=== PATIENT | female | born 1955 | race Caucasian/White ===

== ENCOUNTER 2017-07-02 20:10 | Inpatient (IN) | payer MEDICAID ==
--- NOTE | 2017-07-02 21:06 | ED Physician Chart ---
ED Chief Complaint/HPI - Patient Information Date Seen:: 07/02/17 Time Seen:: 20:30 Chief Complaint:: Dizziness History of Present Illness:: onset x one day of weakness and dizziness; no report of H/As, LOC, S/T, E/As, neck pain, C/P, SOB, Abd. Pain, A/N/V/D/XC, fever, chills, or urinary s/s Allergies:: Allergies Allergy/AdvReac Type Severity Reaction Status Date / Time No Known Allergies Allergy Verified 07/02/17 20:51 Vitals:: Vital Signs - 8 hr 07/02/17 20:30 Temp 97.8 F HR 90 RR 18 BP 153/83 O2 Sat % 97 Historian:: Patient, Family Member Review:: Nurse's Note Reviewed ED Review of Systems - Review of Systems General/Constitutional: No fever, No chills, No weight loss, No weakness, No diaphoresis, No edema, No loss of appetite Skin: No skin lesions, No rash, No bruising Head: No headache, No light-headedness Eyes: No loss of vision, No pain, No diplopia ENT: No earache, No nasal drainage, No sore throat, No tinnitus Neck: No neck pain, No swelling, No thyromegaly, No stiffness, No mass noted Cardio Vascular: No chest pain, No palpitations, No PND, No orthopnea, No edema Pulmonary: No SOB, No cough, No sputum, No wheezing GI: No nausea, No vomiting, No diarrhea, No pain, No melena, No hematochezia, No constipation, No hematemesis G/U: No dysuria, No frequency, No hematuria, No nacturia Charge Weigher: No vaginal discharge, No abnormal vaginal bleed, No contraction Musculoskeletal: No bone or joint pain, No back pain, No muscle pain Endocrine: No polyuria, No polydipsia Psychiatric: No prior psych history, No depression, No anxiety, No suicidal ideation, No homicidal ideation, No auditory hallucination, No visual hallucination Hematopoietic: No bruising, No lymphadenopathy Allergic/Immuno: No urticaria, No angioedema Neurological: No syncope, No focal symptoms, No weakness, No paresthesia, No headache, No seizure, No dizziness, No confusion, No vertigo ED Past Medical History - Past Medical History Obtainable: Yes Past Medical History: HTN, Dyslipidemia, Arthritis Family History: HTN Social History: Non Smoker, No Alcohol, No Drug Use, Surgical History: None Psychiatricy History: None Medication: Reviewed Family Medical History - Family Member Mother History Unknown: Yes ED Physical Exam - Physical Examination General/Constitutional: Awake, Well-developed, well-nourished, Alert, No distress, GCS 15, Non-toxic appearing, Ambulatory Head: Atraumatic Eyes: Lids, conjuctiva normal, PERRL, EOMI Skin: Nl inspection, No rash, No skin lesions, No ecchymosis, Well hydrated, No lymphadenopathy ENMT: External ears, nose nl, TM canals nl, Nasal exam nl, Lips, teeth, gums nl , Oropharynx nl, Tonsils nl Neck: Nontender, Full ROM w/o pain, No JVD, No nuchal rigidity, No bruit, No mass, No stridor Respiratory: Nl effort/Exclusion, Clear to Auscultation, No Wheeze/Rhonchi/Rales Cardio Vascular: RRR, No murmur, gallop, rubs, NL S1 S2, Carotid/Femoral/Distal pulses equal bilaterally GI: No tenderness/rebounding/guarding, No organomegaly, No hernia, Normal BS's, Nondistended, No mass/bruits, No McBurney tenderness : No CVA tenderness Extremities: No tenderness or effusion, Full ROM, normal strength in all extremities, No edema, Normal digits & nails Neuro/Psych: Alert/oriented, DTR's symmetric, Normal sensory exam, Normal motor strength, Judgement/insight normal, Mood normal, Normal gait, No focal deficits Misc: Normal back, No paraspinal tenderness ED Labs/Radiology/EKG Results - Lab Results Comments:: WBC: 12.2; K+: 3.4; U/A: + Pyuria - Radiology Results Comments:: NAD - EKG Interpretations EKG Time:: 21:18 Rate & Rhythm: 82; NSR Comments:: non-specific st-t changes ED Septic Shock - . Is Septic Shock (SBP<90, OR Lactate>4 mmol\L) present?: No - <6hrs of presentation: Vital Signs: Vital Signs - 8 hr 07/02/17 20:30 Temp 97.8 F HR 90 RR 18 BP 153/83 O2 Sat % 97 ED Reassessment (Disposition) - Reassessment Reassessment Condition:: Improved - Diagnosis Diagnosis:: Dx: Hypokalemia; Leukocytosis; UTI Urosepsis; Sepsis; - Aftercare/Follow up Instructions Aftercare/Follow-Up Instructions:: Counseled pt regarding lab results/diagnosis & need follow up, Counseled pt & family regarding lab results/diagnosis & need follow up - Patient Disposition Discharge/Transfer:: Acute Care w/in this hosp Accepting Physician:: Dr. Casarez Time Called:: 2224 Time Responded:: 22:25 Admitted to:: Telemetry Spoke to:: Dr. Casarez Admitting Medical Physician:: Dr. Casarez Condition at Disposition:: Stable, Improved
[2017-07-02] MEDS ORDERED: Sodium Chloride 0.9% 1,000 ML IV ONE (21:07)
[2017-07-02 21:24] LABS: % BASOPHILS 0.2 % (0.0-2.0); % EOSINOPHILS 0.4 % (0.0-5.0); % LYMPHOCYTES 12.9 % (20.0-50.0); % MONOCYTES 5.3 % (2.0-10.0); % NEUTROPHILS 81.2 % (40.0-80.0); HEMATOCRIT 36.8 % (41.0-60); HEMOGLOBIN 12.4 gm/dL (12-16); LYMPHOCYTE ABSOLUTE 1.6 Th/cmm (1.5-3.0); MEAN CELL VOLUME 86.3 fl (81-100); MEAN CORPUSCULAR HEMOGLOBIN 29.2 pg (27.0-31.0); MEAN CORPUSCULAR HGB CONC 33.8 pg (28.0-36.0); MEAN PLATELET VOLUME 7.9 fl; MONOCYTE ABSOLUTE 0.6 Th/cmm (0.3-1.0); PLATELET COUNT 288 Th/cmm (150-400); RED BLOOD COUNT 4.26 Mil/cmm (3.80-5.10); RED CELL DISTRIBUTION WIDTH 12.7 % (11.5-20.0)
[2017-07-02 21:35] LABS: WHITE BLOOD COUNT 12.2 Th/cmm (4.8-10.8)
[2017-07-02 21:37] LABS: INR 1.01 (0.5-1.4); PROTHROMBIN TIME (TEST) 10.5 SECONDS (9.5-11.5)
[2017-07-02 21:44] LABS: ALB/GLOB RATIO 1.7 (1.0-1.8); ALBUMIN 4.4 gm/dL (3.7-5.3); ALKALINE PHOSPHATASE 60 U/L (34-104); AMYLASE SERUM 77 U/L (29-103); ANION GAP 11.3 (7.0-16.0); BILIRUBIN,TOTAL 0.2 mg/dL (0.3-1.0); BUN - UREA NITROGEN 22 mg/dL (7-25); CALCIUM SERUM 9.5 mg/dL (8.6-10.3); CARBON DIOXIDE 22.1 mEq/L (21.0-31.0); CHLORIDE 109 mEq/L (98-107); CHOLESTEROL 218 mg/dL (<200); CREATININE - SERUM 0.7 mg/dL (0.6-1.2); CREATININE KINASE 48 U/L (30-223); GFR AFRICAN-AMERICAN > 60.0 ml/min (>90); GFR NON AFRICAN-AMERICAN > 60.0 ml/min; GLUCOSE 138 mg/dL (70-105); HDL -HIGH DENSITY LIPOPROTEIN 48 mg/dL (23-92); LIPASE 33 U/L (11-82); POTASSIUM SERUM 3.4 mEq/L (3.5-5.1); SGOT 12 U/L (13-39); SGPT/ALT 9 U/L (7-52); SODIUM SERUM 139 mEq/L (136-145); TRIGLYCERIDES 98 mg/dL (<150)
[2017-07-02] MEDS ORDERED: Potassium Chloride 20 mEq ER Tab PO ONE ×2 (22:46→23:05)
[2017-07-02] MEDS ORDERED: cefTRIAXone 1 GM in Sodium Chloride 0.9% 50 ML IV ONE (22:51)
[2017-07-02 23:52] LABS: URINE MICROSCOPIC INDICATED? YES; URINE SOURCE MIDSTREAM
[2017-07-03 00:03] LABS: URINE BILIRUBIN NEGATIVE (NEGATIVE); URINE BLOOD TRACE (NEGATIVE); URINE GLUCOSE (UA) NEGATIVE (NEGATIVE); URINE KETONE NEGATIVE (NEGATIVE); URINE LEUKOCYTE ESTERASE TRACE (NEGATIVE); URINE NITRATE POSITIVE (NEGATIVE); URINE PROTEIN NEGATIVE (NEGATIVE); URINE UROBILINOGEN 0.2 E.U./dL (0.2 - 1.0)
[2017-07-03 00:10] LABS: URINE CLARITY HAZY (CLEAR); URINE COLOR YELLOW
[2017-07-03 00:15] LABS: URINE BACTERIA MANY /hpf (NONE SEEN); URINE EPITHELIAL CELLS FEW /lpf (FEW); URINE RBC 0-2 /hpf (0-5)
[2017-07-03 02:44] LABS: INF A SCREEN NEG FOR INF A; INF B SCREEN NEG FOR INF B
--- NOTE | 2017-07-03 07:51 | Diagnostic Imaging Report ---
Portable chest x-ray History: Pain Allowing for portable technique the heart size is normal. No focal pulmonary parenchymal processes. No hilar or mediastinal abnormalities. Impression: No acute abnormalities.
[2017-07-03] MEDS ORDERED: D5-0.45NS 1,000 ML IV SCH (08:45)
[2017-07-03] MEDS ORDERED: Albuterol Nebulizer 2.5mg/3mL HHN PRN (16:45)
[2017-07-03 17:43] VITALS: BP 134/61
[2017-07-03] MEDS: Budesonide 0.5 Mg/2 mL Ud HHN SCH (19:00)
[2017-07-03] MEDS ORDERED: cefTRIAXone 1 GM in Sodium Chloride 0.9% 50 ML IV SCH (21:00)
--- NOTE | 2017-07-04 01:16 | History & Physical ---
ADMIT DATE: 07/03/2017 HISTORY OF PRESENT ILLNESS: The patient admitted through the Emergency Room to the [facility] with the chief complaints of weakness and dizziness onset for 1-day and then patient reported dizziness for more than 2 hours and she felt nauseated and the patient showed up at the Emergency Room, but there is no report of the headaches or LOC or neck pain or shortness of breath or abdominal pain or any other symptoms of the chest pain or urinary tract infections. ALLERGIES: There are no known allergies. PAST MEDICAL HISTORY: Significant for hyperlipidemia, hypertension, arthritis, chronic pain syndrome, and diabetes without any complication, and also she is a nonsmoker SOCIAL HISTORY: Nonsmoker. REVIEW OF SYSTEMS: GENERAL AND CONSTITUTIONAL: The patient denies any fevers, chills, or change in appetite. No headache. NECK: Complaining of neck pain secondary to her arthritis. Otherwise, no major pain while movements of the neck. EYES: No eye pain, no eye discomfort. ENT: No discharge in the ear, no trouble in hearing. No earache and no nosebleeds. No nasal discharge, no mouth pain. No sore throat. No dysphagia. CARDIOVASCULAR: No chest pain, no palpitations. PULMONARY: No shortness of breath, no cough, no phlegm. GASTROINTESTINAL: No abdominal pain, no bloody stool, but there is a history of nausea. She felt nauseated for about an hour prior to the admission. No dysuria, no polyuria, no incontinence. MUSCULOSKELETAL: She has arthritis and chronic pain syndrome which she experiences and takes ibuprofen and also gets the shots, other than that there is no other neck pain or back pain. INTEGUMENTARY: No itching, no rash, no abnormal skin lesions. NEUROLOGIC: The patient feels dizzy when admitted, but now she is awake and alert. No confusion, no tingling, no numbness, and no dizziness at present. PSYCHIATRIC: No history. GENITOURINARY: Recently in April, she had a history of urinary tract infection for which she was treated and also referred to a urologist, but she did not see the specialist because of the distance and having no ride to go see him. PHYSICAL EXAMINATION: GENERAL: On examination today, the patient is awake and alert, not in any distress. VITAL SIGNS: Temperature 97.8, heart rate 90, respirations 18, blood pressure 153/83, saturating 97% on room air. HEENT: Head is atraumatic and normocephalic. Eyes normal for inspection. Conjunctivae is normal. PERRLA. EOMI. SKIN: Warm and normal for inspection and touch. EAR, NOSE, MOUTH, AND THROAT: No lesions. No abnormalities noted. NECK: Nontender. Full range of motion without pain noted. No JVD. No nuchal rigidity. RESPIRATORY: Normal effort and clear to auscultate. No wheezing, no rhonchi. CARDIOVASCULAR: No murmurs. Normal S1, S2 heard. GASTROINTESTINAL: Nontender and bowel sounds are present, soft. GENITOURINARY: No CVA tenderness and no dysuria. EXTREMITIES: No clubbing, no cyanosis, and no edema. NEUROLOGIC AND PSYCHIATRIC: The patient is alert and oriented. DTRs are symmetric and normal sensory exam. Normal motor strength. Judgment and insight is normal. Mood is normal. Normal gait. No focal deficits noted. MISCELLANEOUS: Complaining of neck pain on and off, which is relieved with ibuprofen secondary to her arthritis. LABORATORY DATA: The labs in the Emergency Room shows WBC slightly elevated at 12.2 and potassium 3.4. UA shows positive for pyuria. Radiology results, no active disease noted. EKG interpretation was nonspecific ST-T changes and normal sinus rhythm. DIAGNOSES: At the time of admission is leukocytosis, urinary tract infection, and questionable urosepsis. other diadnoses HTN, Hyperlipidemia, DM2-without complication, stable,Arthritis , Chronic pain syndrome, Smoker PLAN: To continue the IV fluids at 60 mL per an hour and will continue the home medications of the Actos met 15/500 mg and her simvastatin 40 mg and we will start her on the breathing treatments and continue the Rocephin q. 24 hours 1 gram. I will also start Levaquin for the UTI and wait for the cultures to come back. The patient is feeling pretty good now, so if she continues to be stable and no dizziness noted or the patient's condition does not deteriorate, we will plan on discharging tomorrow afternoon. JOB# [id number] [facility]ITALMessi
[2017-07-04] MEDS: Budesonide 0.5 Mg/2 mL Ud HHN SCH (08:26)
[2017-07-04 14:57] LABS: A1C % 6.8 % (4.0-6.0)
--- NOTE | 2017-07-04 15:10 | Discharge Summary ---
General Discharge Summary - Discharge Summary Date of Admission: 07/03/17 Admitting Diagnosis: Possible sepsis, dizziness and weakness, Discharge Date: 07/04/17 Discharge Diagnosis: Sepsis ruled out. UTI Laboratory Findings: Laboratory Tests 07/04/17 04:26 Hemoglobin A1c % 6.8 H Hospital Course: Patient received IV antibiotics and IV fluids. Did well. Pain was controlled with oral pain medications. Today stable to be discharged Condition at Discharge: Stable Disposition: PT DISCHARGED HOME Home Medications: Home Medication Medication Instructions Recorded Type Ibuprofen 800 mg PO Q3HR PRN 07/02/17 History Losartan Potassium [Cozaar] 100 mg PO DAILY 07/02/17 History Simvastatin [Zocor] 40 mg PO HS 07/02/17 History Albuterol Nebulizer 2.5mg/3mL 2.5 mg HHN Q6H PRN each 07/04/17 Rx [Albuterol Neb UD*] Ibuprofen [Motrin*] 800 mg PO QID PRN tab 07/04/17 Rx Levofloxacin [Levaquin] 500 mg PO DAILY #0 tab 07/04/17 Rx Levofloxacin [Levaquin] 500 mg PO DAILY 7 Days tab 07/04/17 Rx Losartan Potassium [Cozaar] 100 mg PO DAILY tab 07/04/17 Rx Simvastatin [Zocor] 40 mg PO HS tab 07/04/17 Rx Inpatient Medications: Current Medications Albuterol Sulfate (Albuterol 2.5mg/3ml Neb Ud) 2.5 mg HHN Q6H PRN PRN Reason: Wheezing Stop: 09/01/17 16:44 Budesonide (Pulmicort) 0.5 mg HHN BIDRT SERINA Stop: 09/01/17 18:59 Last Admin: 07/04/17 08:26 Dose: 0.5 mg Ceftriaxone Sodium 1 gm/ (Sodium Chloride) 50 mls @ 100 mls/hr IV Q24HR SERINA Stop: 09/01/17 20:59 Last Infusion: 07/04/17 06:32 Dose: Infused Ibuprofen (Motrin) 800 mg PO QID PRN PRN Reason: Pain (Mild) Stop: 09/01/17 10:17 Last Admin: 07/04/17 09:17 Dose: 800 mg Levofloxacin (Levaquin) 500 mg PO DAILY [facility] Stop: 09/02/17 14:59 Losartan Potassium (Cozaar) 100 mg PO DAILY [facility] Stop: 09/02/17 08:59 Last Admin: 07/04/17 09:17 Dose: 100 mg Simvastatin (Zocor) 40 mg PO [facility] PRN Reason: Protocol Stop: 09/01/17 20:59 Last Admin: 07/03/17 21:30 Dose: 40 mg Prescriptions: Levofloxacin [Levaquin] 500 mg PO DAILY 7 Days tab Activity: As Tolerated Discharge Diet: 2 Gram Sodium Consults and Follow-Up: Jeff Casarez [Primary Care Provider] - Instructions: Urinary Tract Infection, Pneumonia, Adult
--- NOTE | 2017-07-05 05:51 | Consultation ---
DATE OF CONSULTATION: 07/03/2017 HISTORY OF PRESENT ILLNESS: This is a 61-year-old female who was brought to the Emergency Room with complaint of weakness, dizziness. Workup shows UTI. Infectious consultation was called. ____ essential hypertension, hyperlipidemia. Also patient has dry cough suggestive of bronchitis. The patient was evaluated in ER and denies any fevers. PAST MEDICAL HISTORY: Hyperlipidemia, hypertension, and arthritis. FAMILY HISTORY: Family history of hypertension present. SOCIAL HISTORY: Nonsmoker. REVIEW OF SYSTEMS: A 14-point review of systems negative except for above. ALLERGIES: No allergies. PHYSICAL EXAMINATION: GENERAL: The patient is alert, awake, oriented, well-nourished female. VITAL SIGNS: With the following vital signs: Temperature 97.8, pulse 90, respiration 18, blood pressure 150/80. HEENT: Mild pallor, no icterus or plaque. NECK: Supple. LUNGS: Breath sounds bilateral vesicular. ABDOMEN: Soft, bowel sounds present. NODES: No thyroid and no cervical lymph nodes. LABORATORY DATA: Labs are as follows: Cultures are pending. White count is 12,000, hemoglobin is 12, platelets 288. Chest x-ray is reviewed and shows clear lung lopez. DIAGNOSES: Urinary tract infection and bronchitis. The patient was started on Rocephin and Levaquin combination, supportive care, hypertension, Cozaar, Actos for diabetes, hyperlipidemia and Zocor. Rest of the care as ordered in CPOE. JOB# [id number]
== END 2017-07-04 16:08 | disposition home or self-care (01) | DRG 463 ==
LOC: ER 20:10 → TELE 07-03 01:30 → MSI 07-04 09:42
PROVIDERS: ADMIT General Practice; ATTEND General Practice
DX: N39.0 Urinary tract infection, site not specified (principal); E11.9 Type 2 diabetes mellitus without complications; E78.5 Hyperlipidemia, unspecified; I10 Essential (primary) hypertension; M19.90 Unspecified osteoarthritis, unspecified site; G89.4 Chronic pain syndrome; J40 Bronchitis, not specified as acute or chronic; E87.6 Hypokalemia; Z82.49 Family history of ischemic heart disease and other diseases of the circulatory system; Z79.51 Long term (current) use of inhaled steroids
CPT/HCPCS: 36415-UA; 71010-TC; 80053-TC; 80061-TC; 81001-TC; 81003-TC; 82150-TC; 82550-TC; 82948-90; 83036-90; 83605; 83690-TC; 83880-TC; 84484-TC; 84703-TC; 85025-TC; 85610-TC; 85730-TC; 87086-90; 87804-TC; 93005; 94640; 94760; J0696; J7030

== ENCOUNTER 2018-06-27 08:49 | Emergency (ER) | payer MEDICAID ==
[2018-06-27 09:31] LABS: URINE SOURCE RANDOM
[2018-06-27 09:37] LABS: % BASOPHILS 0.4 % (0.0-2.0); % EOSINOPHILS 0.8 % (0.0-5.0); % MONOCYTES 5.6 % (2.0-10.0); % NEUTROPHILS 75.2 % (40.0-80.0); EOSINOPHILE ABSOLUTE 0.1 Th/cmm (0.1-0.4); HEMATOCRIT 40.9 % (41.0-60); HEMOGLOBIN 13.6 gm/dL (12-16); LYMPHOCYTE ABSOLUTE 1.6 Th/cmm (1.5-3.0); MEAN CELL VOLUME 85.6 fl (81-100); MEAN CORPUSCULAR HEMOGLOBIN 28.5 pg (27.0-31.0); MEAN CORPUSCULAR HGB CONC 33.3 pg (28.0-36.0); MEAN PLATELET VOLUME 8.1 fl; MONOCYTE ABSOLUTE 0.5 Th/cmm (0.3-1.0); NEUTROPHILE ABSOLUTE 6.8 Th/cmm (1.8-8.0); PLATELET COUNT 292 Th/cmm (150-400); RED BLOOD COUNT 4.78 Mil/cmm (3.80-5.10)
--- NOTE | 2018-06-27 09:39 | ED Physician Chart ---
ED Chief Complaint/HPI - Patient Information Date Seen:: 06/27/18 Time Seen:: 09:33 Chief Complaint:: back pain History of Present Illness:: THIS IS A 62 YO FEMALE WHO IS CONCERNED ABOUT HER BACK PAIN THAT HAS INCREASED OVER THE LAST FEW DAYS. SHE STATED THAT SHE HAS POROSIS OF HER LOWER BACK. SHE DENIES ANY RECENT TRAUMA OR LIFTING AT HOME RECENTLY. SHE ADMITS TO SMOKING, HYPERTENSION BUT STATES THAT SHE HAS HIGH LIPIDS. Allergies:: Allergies Allergy/AdvReac Type Severity Reaction Status Date / Time No Known Allergies Allergy Verified 07/02/17 20:51 Vitals:: Vital Signs - 8 hr 06/27/18 08:58 Temp 98.3 F HR 80 RR 15 BP 141/63 O2 Sat % 97 Historian:: Patient Review:: Nurse's Note Reviewed, Old Chart Reviewed ED Review of Systems - Review of Systems General/Constitutional: No fever, No chills, No weight loss, No weakness, No diaphoresis, No edema, No loss of appetite Skin: No skin lesions, No rash, No bruising Head: No headache, No light-headedness Eyes: No loss of vision, No pain, No diplopia ENT: No earache, No nasal drainage, No sore throat, No tinnitus Neck: Neck pain, No swelling, No thyromegaly, No stiffness, No mass noted Cardio Vascular: No chest pain, No palpitations, No PND, No orthopnea, No edema Pulmonary: No SOB, No cough, No sputum, No wheezing GI: No nausea, No vomiting, No diarrhea, No pain, No melena, No hematochezia, No constipation, No hematemesis G/U: No dysuria, No frequency, No hematuria Musculoskeletal: No bone or joint pain, Back pain, No muscle pain Endocrine: No polyuria, No polydipsia Psychiatric: No prior psych history, No depression, No anxiety, No suicidal ideation Hematopoietic: No bruising, No lymphadenopathy Allergic/Immuno: No urticaria, No angioedema Neurological: No syncope, No focal symptoms, No weakness, No paresthesia, No headache, No seizure, No dizziness, No confusion, No vertigo ED Past Medical History - Past Medical History Obtainable: Yes Past Medical History: HTN, DM, Dyslipidemia Family History: None Social History: Smoker, Surgical History: Psychiatricy History: None Medication: Reviewed Family Medical History - Family Member Mother History Unknown: Yes Ethnicity: Hx Family Cancer: No Hx Family Stroke: No Hx Family Seizures: No Hx Family Dementia: No Hx Family AIDS: No Hx Family Tuberculosis: No ED Physical Exam - Physical Examination General/Constitutional: Awake, Well-developed, well-nourished, Alert, No distress, GCS 15, Non-toxic appearing, Ambulatory Head: Atraumatic Eyes: Lids, conjuctiva normal, PERRL, EOMI Skin: Nl inspection, No rash, No skin lesions, No ecchymosis, Well hydrated, No lymphadenopathy ENMT: External ears, nose nl, Nasal exam nl, Lips, teeth, gums nl Neck: Nontender, Full ROM w/o pain, No JVD, No nuchal rigidity, No bruit, No mass, No stridor Respiratory: Nl effort/Exclusion, Clear to Auscultation, No Wheeze/Rhonchi/Rales Cardio Vascular: RRR, No murmur, gallop, rubs, NL S1 S2 GI: No tenderness/rebounding/guarding, No organomegaly, No hernia, Normal BS's, Nondistended, No mass/bruits, No McBurney tenderness : No CVA tenderness Extremities: No tenderness or effusion, Full ROM, normal strength in all extremities, No edema, Normal digits & nails Other Extremities comments:: RIGHT LOWER BACK AND BUTTOCK TENDERNESS Neuro/Psych: Alert/oriented, DTR's symmetric, Normal sensory exam, Normal motor strength, Judgement/insight normal, Mood normal, Normal gait, No focal deficits Misc: Normal back, No paraspinal tenderness ED Labs/Radiology/EKG Results - Lab Results Results: Laboratory Results - last 24 hr 06/27/18 06/27/18 06/27/18 09:27 09:27 09:27 WBC 9.0 RBC 4.78 Hgb 13.6 Hct 40.9 L MCV 85.6 MCH 28.5 MCHC Differential 33.3 RDW 13.0 Plt Count 292 MPV 8.1 Neutrophils % 75.2 Lymphocytes % 18.0 L Monocytes % 5.6 Eosinophils % 0.8 Basophils % 0.4 Sodium 139 Potassium 3.9 Chloride 112 H Carbon Dioxide 17.6 L Anion Gap 13.3 BUN 15 Creatinine 0.5 L Est GFR ( Amer) > 60.0 Est GFR (Non-Af Amer) > 60.0 BUN/Creatinine Ratio 30.0 Glucose 105 Calcium 9.3 Total Bilirubin 0.3 AST 14 ALT 11 Alkaline Phosphatase 68 Troponin I 0.03 Total Protein 7.4 Albumin 4.1 Globulin 3.3 Albumin/Globulin Ratio 1.2 Amylase Lipase TSH Urine Source Urine Color Urine Clarity Urine pH Ur Specific [place] Urine Protein Urine Glucose (UA) Urine Ketones Urine Blood Urine Nitrate Urine Bilirubin Urine Urobilinogen Ur Leukocyte Esterase Urine RBC Urine WBC Ur Epithelial Cells Urine Bacteria 06/27/18 06/27/18 06/27/18 09:27 09:27 09:27 WBC RBC Hgb Hct MCV MCH MCHC Differential RDW Plt Count MPV Neutrophils % Lymphocytes % Monocytes % Eosinophils % Basophils % Sodium Potassium Chloride Carbon Dioxide Anion Gap BUN Creatinine Est GFR ( Amer) Est GFR (Non-Af Amer) BUN/Creatinine Ratio Glucose Calcium Total Bilirubin AST ALT Alkaline Phosphatase Troponin I Total Protein Albumin Globulin Albumin/Globulin Ratio Amylase 79 Lipase 29 TSH 1.11 Urine Source RANDOM Urine Color YELLOW Urine Clarity CLEAR Urine pH 6.0 Ur Specific [place] 1.015 Urine Protein NEGATIVE Urine Glucose (UA) NEGATIVE Urine Ketones NEGATIVE Urine Blood TRACE Urine Nitrate NEGATIVE Urine Bilirubin NEGATIVE Urine Urobilinogen 0.2 Ur Leukocyte Esterase NEGATIVE Urine RBC 0-2 Urine WBC 0-2 Ur Epithelial Cells OCCASIONAL Urine Bacteria FEW - Radiology Results Results: ct scan of the lumbar spine=degenerative disc disease ED Assessment - Assessment General Assessment: lumbar disc disease ED Septic Shock - . Is Septic Shock (SBP<90, OR Lactate>4 mmol\L) present?: No - <6hrs of presentation: Vital Signs: Vital Signs - 8 hr 06/27/18 08:58 Temp 98.3 F HR 80 RR 15 BP 141/63 O2 Sat % 97 ED Reassessment (Disposition) - Reassessment Reassessment Condition:: Improved (lum) - Diagnosis Diagnosis:: lumbar disc disease - Aftercare/Follow up Instructions Aftercare/Follow-Up Instructions:: Counseled pt regarding lab results/diagnosis & need follow up, Refer to Discharge Instructions, Counseled pt & family regarding lab results/diagnosis & need follow up Medication Prescribed:: gabapentin, prednisone - Patient Disposition Discharge/Transfer:: Home Condition at Disposition:: Improved
[2018-06-27 09:45] LABS: URINE BILIRUBIN NEGATIVE (NEGATIVE); URINE BLOOD TRACE (NEGATIVE); URINE GLUCOSE (UA) NEGATIVE (NEGATIVE); URINE KETONE NEGATIVE (NEGATIVE); URINE LEUKOCYTE ESTERASE NEGATIVE (NEGATIVE); URINE MICROSCOPIC INDICATED? YES; URINE NITRATE NEGATIVE (NEGATIVE); URINE PROTEIN NEGATIVE (NEGATIVE); URINE UROBILINOGEN 0.2 E.U./dL (0.2 - 1.0)
[2018-06-27 09:46] LABS: URINE CLARITY CLEAR (CLEAR); URINE COLOR YELLOW
[2018-06-27 09:53] LABS: URINE EPITHELIAL CELLS OCCASIONAL /lpf (FEW); URINE RBC 0-2 /hpf (0-5); URINE WBC 0-2 /hpf (0-5)
[2018-06-27 09:54] LABS: URINE BACTERIA FEW /hpf (NONE SEEN)
[2018-06-27 09:57] LABS: ALB/GLOB RATIO 1.2 (1.0-1.8); ALBUMIN 4.1 gm/dL (3.7-5.3); ALKALINE PHOSPHATASE 68 U/L (34-104); AMYLASE SERUM 79 U/L (29-103); ANION GAP 13.3 (7.0-16.0); BILIRUBIN,TOTAL 0.3 mg/dL (0.3-1.0); BUN - UREA NITROGEN 15 mg/dL (7-25); CALCIUM SERUM 9.3 mg/dL (8.6-10.3); CARBON DIOXIDE 17.6 mEq/L (21.0-31.0); CHLORIDE 112 mEq/L (98-107); CREATININE - SERUM 0.5 mg/dL (0.6-1.2); GFR AFRICAN-AMERICAN > 60.0 ml/min (>90); GFR NON AFRICAN-AMERICAN > 60.0 ml/min; GLUCOSE 105 mg/dL (70-105); LIPASE 29 U/L (11-82); POTASSIUM SERUM 3.9 mEq/L (3.5-5.1); SGOT 14 U/L (13-39); SGPT/ALT 11 U/L (7-52); SODIUM SERUM 139 mEq/L (136-145); TOTAL PROTEIN,SERUM 7.4 gm/dL (6.0-8.3)
--- NOTE | 2018-06-27 11:00 | Diagnostic Imaging Report ---
CT lumbar spine without IV contrast HISTORY: Back pain COMPARISON: None Technique: Axial images were obtained from the lower thoracic spine to the upper sacrum without IV contrast. Reconstructions were made. total DLP: [id number], [id number] Findings: Images of the lumbar spine obtained without contrast demonstrate no evidence of an acute fracture or subluxation. Mild degenerative changes are seen greatest within the lower lumbar spine. There is an estimated 4-5 mm mm broad-based disc bulge at L4/L5 causing moderate to severe spinal canal narrowing. There is mild bilateral neural foraminal narrowing at this level. Facet degenerative changes are also seen at this level. There is also an estimated 3 mm focal disc bulge at L5/S1 causing mild spinal canal narrowing. There is mild bilateral neural foraminal narrowing at this level. The visualized retroperitoneum demonstrates atherosclerosis. Degenerative changes of the SI joints are noted. IMPRESSION: No evidence of acute fracture or subluxation. Degenerative changes of the lower lumbar spine as above. There is a estimated 4-5 mm disc bulge at L4/L5 causing moderate to severe spinal canal narrowing. If indicated, MRI follow may be obtained for further assessment.
== END 2018-06-27 11:50 | disposition home or self-care (01) ==
LOC: ER 08:49
DX: M51.36 Other intervertebral disc degeneration, lumbar region (principal); I10 Essential (primary) hypertension; E11.9 Type 2 diabetes mellitus without complications; E78.5 Hyperlipidemia, unspecified; F17.200 Nicotine dependence, unspecified, uncomplicated; Z98.890 Other specified postprocedural states
CPT/HCPCS: 99284; 96372; 72131; 84484; 36415; 84443; 85025; 81001; 82150; 83036; 83690; 80053; J1885; Z7502